=== PATIENT | female | born 1980 | race African-American/Black ===

== ENCOUNTER 2017-02-11 00:06 | Emergency (ER) | payer OTHER ==
[2017-02-11 00:39] VITALS: BMI 35.6
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
[2017-02-11] MEDS ORDERED: KETOROLAC TROMETHAMINE 60 MG/2 ML VIAL IM ONE (00:48)
[2017-02-11] MEDS ORDERED: KETOROLAC TROMETHAMINE 60 MG/2 ML VIAL ONE (00:52)
[2017-02-11 01:03] LABS: URINE APPEARANCE SLCLOUDY; URINE BILIRUBIN NEGATIVE (NEGATIVE); URINE BLOOD NEGATIVE (NEGATIVE); URINE COLOR LTYELLOW; URINE GLUCOSE (UA) NEGATIVE (NEGATIVE); URINE KETONE NEGATIVE (NEGATIVE); URINE NITRITE NEGATIVE (NEGATIVE); URINE PROTEIN NEGATIVE (NEGATIVE); URINE UROBILINOGEN NEGATIVE E.U./dl (0.2-1.0)
[2017-02-11 01:05] LABS: URINE LEUK ESTERASE 2+ (NEGATIVE)
[2017-02-11 01:14] LABS: URINE BACTERIA RARE /hpf (NONE SEEN); URINE MUCUS RARE; URINE RBC 1 /hpf (0-3); URINE WBC 6 /hpf (3-5)
[2017-02-11] MEDS ORDERED: SULFAMETHOXAZOLE/TRIMETHOPRIM 800MG/160MG D.S. TABLET PO ONE (01:45)
[2017-02-11 01:56] VITALS: BP 138/87; PULSE 68; TEMP 98.2
[2017-02-11] MEDS ORDERED: SULFAMETHOXAZOLE/TRIMETHOPRIM 800MG/160MG D.S. TABLET ONE (01:58)
== END 2017-02-11 02:39 | disposition home or self-care (01) ==
LOC: JER 00:06
PROC: 3E0233Z Introduction of Anti-inflammatory into Muscle, Percutaneous Approach (ICD-10-PCS; principal; 2017-02-11)
DX: N10 Acute pyelonephritis (principal); E05.90 Thyrotoxicosis, unspecified without thyrotoxic crisis or storm; F17.210 Nicotine dependence, cigarettes, uncomplicated
CPT/HCPCS: 81003; 81015; 84703; 87086; 96372; 99283-25

== ENCOUNTER 2017-08-15 16:33 | Emergency (ER) | payer OTHER ==
[2017-08-15 16:50] VITALS: BP 142/91; PULSE 76; TEMP 98; BMI 33.7
--- NOTE | 2017-08-15 16:52 | PDOC ---
Rapid Medical Evaluation Time Seen by Provider: 08/15/17 16:46 Medical Evaluation: Allergies Allergy/AdvReac Type Severity Reaction Status Date / Time No Known Allergies Allergy Verified 08/15/17 16:46 12 16:46 I have performed a brief in person evaluation of this patient. The patient presents with chief complaint of : lightheaded since 3pm. took home BP it was 149/100. LMP last week , history of hyperthyroid, PMD: . pt currently eating chips in triage having cell phone conversations. Pertinent PE findings: 142/90 I have ordered the following: urine preg The patient will proceed to the ER for further evaluation. 08/15/17 16:48
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
== END 2017-08-15 20:15 | disposition home or self-care (01) ==
LOC: JER 16:33
DX: R42 Dizziness and giddiness (principal); F17.210 Nicotine dependence, cigarettes, uncomplicated; E05.90 Thyrotoxicosis, unspecified without thyrotoxic crisis or storm
CPT/HCPCS: 84703; 99281-25

== ENCOUNTER 2019-10-09 06:45 | Inpatient (IN) | payer OTHER ==
[2019-10-09] MEDS ORDERED: CITRIC ACID/SODIUM CITRATE 30 ML UNIT-DOSE CUP PO ONE (07:29)
[2019-10-09] MEDS: ELECTROLYTE-148 SOLN 1,000 ML IV SCH (07:30)
--- NOTE | 2019-10-09 07:36 | HP ---
Past Medical History - Primary Care Physician PCP:: Randal Ibrahim - Admission Chief Complaint: 39 weeks, previous c/s, hyperthyroidism, request of repeat c/s. AMA, obesity, request for tubal ligation History of Present Illness: 38 yo f g 5 p2 0 1 2 with 2 previous c/s,39 weeks, requesting repeat c/s and BTL , risks associated with repeat c/s discussed , aware BTL is permanent, , not reversible , has small failure risks and risks ectopic, ulternatives to BTL discussed History Source: Patient - Past Medical History ...: 6 ...Para: 3 ...Term: 2 ...: 0 ...EDC by Sono: 10/17/19 Endocrine: Yes: Hyperthyroidism - Past Surgical History Past Surgical History: Yes: (ectopic ) Hx Myomectomy: No Hx Transabdominal Cerclage: No - Smoking History Smoking history: Current every day smoker Have you smoked in the past 12 months: Yes Aproximately how many cigarettes per day: 10 - Alcohol/Substance Use Hx Alcohol Use: No History of Substance Use: reports: None - Social History History of Recent Travel: No Home Medications - Allergies Allergies/Adverse Reactions: Allergies Allergy/AdvReac Type Severity Reaction Status Date / Time No Known Allergies Allergy Verified 10/09/19 07:38 - Home Medications Home Medications: Ambulatory Orders Methimazole 2 tab PO AM 06/27/19 Ferrous Sulfate [Iron] 325 mg PO DAILY 09/12/19 Vitamins (Sjr) - 1 tab PO DAILY 09/23/19 Review of Systems - Review of Systems Constitutional: reports: No Symptoms Eyes: reports: No Symptoms HENT: reports: No Symptoms Neck: reports: No Symptoms Cardiovascular: reports: No Symptoms Respiratory: reports: No Symptoms Gastrointestinal: reports: No Symptoms Genitourinary: reports: No Symptoms Breasts: reports: No Symptoms Reported Musculoskeletal: reports: No Symptoms Integumentary: reports: No Symptoms Neurological: reports: No Symptoms Endocrine: reports: Excessive Sweating Psychiatric: reports: No Symptoms Physical Exam - Maternity Constitutional: Yes: Obese Eyes: Yes: WNL HENT: Yes: WNL Neck: Yes: WNL Cardiovascular: Yes: WNL Breast(s): Yes: WNL - Abdominal Exam/OB Fundal Height: 38 Number of Fetuses: Single Presentation: Vertex Contractions: No Intensity: Unaware Monitor Mode: External Heart Rate Location: [facility] Category: I Accelerations: Non-Uniform Decelerations: None - Vaginal Exam/OB Vaginal Bleediing: No Speculum Exam: No Dilatation (cm): closed Effacement (%): 0 Amniotic Membrane Status: Intact Presentation: Vertex/Position Station: -4 - Physical Exam Musculoskeletal: Yes: WNL Extremities: Yes: WNL Edema: Yes Edema: LLE: Trace, RLE: Trace Deep Tendon Reflex Grade: Normal +2 ...Motor Strength: WNL Psychiatric: Yes: WNL Hemorrhage Risk Assessment - Risk Factors Medium Risk Factors: Yes: Prior , uterine surgery,or multiple laparotomies Risk Score: 1 Risk Level: Medium Risk Problem List - Problems (1) with 39 completed weeks gestation Code(s): Z3A.39 - 39 WEEKS GESTATION OF (2) Previous section Code(s): Z98.891 - HISTORY OF UTERINE SCAR FROM PREVIOUS SURGERY (3) Advanced maternal age (AMA) in Code(s): LFM6136 - (4) Hyperthyroidism affecting Code(s): O99.280 - ENDO, NUTRITIONAL AND METAB DISEASES COMP PREG, UNSP TRI; E05.90 - THYROTOXICOSIS, UNSP WITHOUT THYROTOXIC CRISIS OR STORM Qualifiers: Trimester: third trimester Qualified Code(s): O99.283 - Endocrine, nutritional and metabolic diseases complicating , third trimester; E05.90 - Thyrotoxicosis, unspecified without thyrotoxic crisis or storm (5) Obesity Code(s): E66.9 - OBESITY, UNSPECIFIED Qualifiers: Obesity type: due to excess calories (6) Smoker Code(s): F17.200 - NICOTINE DEPENDENCE, UNSPECIFIED, UNCOMPLICATED (7) Smoker Code(s): F17.200 - NICOTINE DEPENDENCE, UNSPECIFIED, UNCOMPLICATED (8) Sterilization Code(s): Z30.2 - ENCOUNTER FOR STERILIZATION Assessment/Plan admit risks associated with repeat c/s vs discussed in detail , all her questions answered requesting repeat c/s and BTL
[2019-10-09 08:06] VITALS: BMI 35.2
[2019-10-09] MEDS ORDERED: morphine SULFATE/PF 0.5 MG/ML (2cc Syringe - QUVA) ONE (08:58)
[2019-10-09] MEDS ORDERED: morphine SULFATE/PF 0.5 MG/ML (2cc Syringe - QUVA) EP ONE (09:25)
[2019-10-09] MEDS ORDERED: ceFAZolin SODIUM 1 GM VIAL ONE (09:43)
[2019-10-09] MEDS ORDERED: PHENYLEPHRINE HCL 10 MG/1 ML SINGLE DOSE VIAL ONE (09:43)
[2019-10-09] MEDS ORDERED: OXYTOCIN 10 UNITS/ML VIAL ONE (09:43)
[2019-10-09] MEDS ORDERED: KETOROLAC TROMETHAMINE 30 MG/1 ML VIAL ONE (09:47)
[2019-10-09] MEDS ORDERED: BENZOCAINE 20% 57 GM BOTTLE TP PRN (10:25)
[2019-10-09] MEDS ORDERED: METHYLERGONOVINE MALEATE 0.2 MG/1 ML AMP IM PRN (10:25)
[2019-10-09] MEDS ORDERED: BENZOCAINE 28 GM HEMORRHOIDAL OINTMENT PR PRN (10:25)
[2019-10-09] MEDS ORDERED: WITCH HAZEL 50% (TUCKS) 40 PAD/JAR PAD TP PRN (10:25)
[2019-10-09] MEDS ORDERED: diphenhydrAMINE HCL 25 MG CAPSULE (FP) PO PRN (10:25)
[2019-10-09] MEDS ORDERED: OXYTOCIN 20 UNITS in 0.9% NS 20 UNIT/1,000 ML INFUS.BAG IV SCH (10:30)
--- NOTE | 2019-10-09 10:31 | OP ---
Operative Note - Note: Operative Date: 10/09/19 Pre-Operative Diagnosis: previous c/s. sterlization Operation: repeat LST c/s, RT tubal ligation . LT not seen, previuos ectopic Findings: live baby girl ROT, clear fluid , both ovaries normal, missing LT tube Surgeon: Randal Ibrahim Pleating Supervisor: Billy Renee Anesthesia: Spinal Specimens Removed: placenta, RT tube Estimated Blood Loss (mls): 500 Drains & Tubes with Location: sousa Blood Volume Replaced (mls): 0 Operative Report Dictated: Yes
[2019-10-09] MEDS ORDERED: ONDANSETRON 4 MG/2 ML VIAL IVPUSH PRN (10:33)
[2019-10-09] MEDS ORDERED: ACETAMINOPHEN 1000 MG/100 ML VIAL (NON FORMULARY) IVPB ONE (10:36)
[2019-10-09] MEDS ORDERED: IBUPROFEN 800 MG/8 ML IJ IVPB ONE (11:20)
[2019-10-09] MEDS: IBUPROFEN 800 MG/8 ML IJ IVPB PRN ×2 (11:36→21:01)
[2019-10-09] MEDS: LACTATED RINGERS SOLUTION 1,000 ML IV SCH (11:37)
[2019-10-09] MEDS: DEXTROSE 5%-LACTATED RINGERS 1,000 ML IV SCH (11:37)
[2019-10-09] MEDS ORDERED: OXYTOCIN 20 UNITS in 0.9% NS 20 UNIT/1,000 ML INFUS.BAG IV ONE (12:00)
[2019-10-09] MEDS: CEFAZOLIN 1 GM/D5W 1 GM/50 ML BAG IVPB SCH (17:54)
[2019-10-09] MEDS ORDERED: CEFAZOLIN 1 GM in DEXTROSE 5%-WATER - 50 ML IVPB SCH (18:00)
[2019-10-09] MEDS: ALBUTEROL SO4 0.083% IH SOL 2.5 MG/3 ML VIAL.NEB. NEB PRN (20:35)
[2019-10-09] MEDS: METHIMAZOLE 10 MG TABLET (FP) PO SCH (21:06)
[2019-10-10] MEDS: CEFAZOLIN 1 GM/D5W 1 GM/50 ML BAG IVPB SCH (02:22)
[2019-10-10] MEDS: ALBUTEROL SO4 0.083% IH SOL 2.5 MG/3 ML VIAL.NEB. NEB PRN ×3 (03:05→22:00)
--- NOTE | 2019-10-10 05:21 | PN ---
Post Progress Note - Subjective Subjective: c/o pain scale 7/10 c/o backache from lying in the bed c/o cough , h/o smoking , taking nebulizer treatment , pt not satisfied yet Post Day: 1 Type of Delivery: Repeat C/S (With Rt TL) Vital Signs: Vital Signs Temperature 97.9 F 10/10/19 01:00 Pulse Rate 66 10/10/19 01:00 Respiratory Rate 10/10/19 02:00 Blood Pressure 113/67 10/10/19 01:00 O2 Sat by Pulse Oximetry (%) 99 10/09/19 21:00 Breast Exam: Yes: Soft, Other (bottle feeding ). No: Engorged Uterus: Yes: Fundus Firm, Fundus below umbilicus. No: Non-tender Incision: Yes: Dressing dry and intact. No: Redness, Oozing Abdomen/GI: Yes: Abdomen soft, Abdominal Distention (obese BS active ), Tolerating PO (clear fluids ). No: Passing flatus Lochia: Yes: Rubra Lochia, amount: Moderate Extremities: Yes: Calves non-tender, Edema Perineum: Yes: Intact Activity: Other (not oob yet, scd in situ ) Other Findings, Remarks: RS cta , , shallow breathing, no wheezing Sousa draining . i/o documented 2800/850 + sousa bag urine Problem List - Problems (1) examination following delivery Code(s): Z39.2 - ENCOUNTER FOR ROUTINE FOLLOW-UP Assessment/Plan s/p repeat c/s RT TL smokers cough Plan ct po care ct nebulizer treatment incentive spirometry encourage deep breathing, movements in bed , ambulation after sousa is d/ delfin po cbc today
[2019-10-10] MEDS: SIMETHICONE 80 MG TAB.CHEW (FP) PO PRN ×4 (05:39→17:50)
[2019-10-10] MEDS: IBUPROFEN 600 MG TABLET (FP) PO PRN (05:39)
[2019-10-10] MEDS: ACETAMINOPHEN 325 MG TABLET (FP) PO PRN ×5 (05:40→22:46)
[2019-10-10] MEDS: oxyCODONE HCL 5 MG TABLET PO PRN ×6 (06:22→21:32)
[2019-10-10] MEDS ORDERED: METHIMAZOLE 10 MG TABLET (FP) PO SCH (07:00)
[2019-10-10 09:03] LABS: BASO % 0.6 % (0-2.0); EOS % 0.9 % (0-4.5); HEMATOCRIT 36.9 % (32.4-45.2); HEMOGLOBIN 12.2 GM/dL (10.7-15.3); LYMPH % 18.1 % (8-40); MCH 27.4 pg (25.7-33.7); MCHC 32.9 g/dl (32.0-36.0); MEAN CELL VOLUME 83.3 fl (80-96); MEAN PLT VOLUME 8.1 fl (7.5-11.1); MONO % 5.7 % (3.8-10.2); NEUT % 74.7 % (42.8-82.8); PLATELET COUNT 384 K/MM3 (134-434); RBC 4.43 M/mm3 (3.60-5.2); RDW 15.7 % (11.6-15.6); WHITE BLOOD COUNT 14.3 K/mm3 (4.0-10.0)
[2019-10-10] MEDS: ENOXAPARIN NA (PORCINE) 40 MG/0.4 ML DISP.SYRIN SQ SCH (09:34)
[2019-10-10] MEDS: METHIMAZOLE 10 MG TABLET (FP) PO SCH ×2 (09:44→21:57)
--- NOTE | 2019-10-10 10:22 | PN ---
Progress Note (short form) - Note Progress Note: Anesthesia postop note POD#1 S/P under spinal with duramorph. Pat seen and examined. VSS. Walking in the hallway. Pain well controlled. Scale3-4/10. No apparent postanesthesia complications.
[2019-10-10] MEDS ORDERED: BISACODYL 10 MG SUPP.RECT RC PRN (10:25)
[2019-10-10] MEDS: LACTATED RINGERS SOLUTION 1,000 ML IV SCH (11:20)
[2019-10-10] MEDS: ELECTROLYTE-148 SOLN 1,000 ML IV SCH (11:21)
[2019-10-10] MEDS: DEXTROSE 5%-LACTATED RINGERS 1,000 ML IV SCH (11:21)
[2019-10-10] MEDS: guaiFENesin/D-METHORPHAN HB 10 ML UNIT-DOSE CUPS PO PRN (17:52)
[2019-10-10] MEDS: guaiFENesin 600 MG TABLET.ER (FP) PO SCH (21:03)
[2019-10-11] MEDS: SIMETHICONE 80 MG TAB.CHEW (FP) PO PRN ×4 (01:42→21:59)
[2019-10-11] MEDS: oxyCODONE HCL 5 MG TABLET PO PRN ×2 (01:42→07:39)
--- NOTE | 2019-10-11 05:46 | PN ---
Post Progress Note - Subjective Subjective: Pain controlled. Still with productive cough. No fevers/chills. Ambulating w/o issues Post Day: 2 Type of Delivery: Repeat C/S (With Rt TL) Vital Signs: Vital Signs Temperature 98.1 F 10/10/19 21:13 Pulse Rate 88 10/10/19 21:13 Respiratory Rate 20 10/10/19 21:13 Blood Pressure 132/86 10/10/19 21:13 O2 Sat by Pulse Oximetry (%) 99 10/09/19 21:00 Uterus: Yes: Fundus below umbilicus Incision: Yes: Dressing dry and intact Abdomen/GI: Yes: Abdomen soft, Passing flatus, Tolerating PO Lochia: Yes: Rubra Lochia, amount: Small Extremities: Yes: Calves non-tender Perineum: Yes: Intact Activity: Ambulating - Labs Labs: CBC WBC 14.3 K/mm3 (4.0-10.0) H 10/10/19 08:30 RBC 4.43 M/mm3 (3.60-5.2) 10/10/19 08:30 Hgb 12.2 GM/dL (10.7-15.3) 10/10/19 08:30 Hct 36.9 % (32.4-45.2) 10/10/19 08:30 MCV 83.3 fl (80-96) 10/10/19 08:30 MCH 27.4 pg (25.7-33.7) 10/10/19 08:30 MCHC 32.9 g/dl (32.0-36.0) 10/10/19 08:30 RDW 15.7 % (11.6-15.6) H 10/10/19 08:30 Plt Count 384 K/MM3 (134-434) 10/10/19 08:30 MPV 8.1 fl (7.5-11.1) 10/10/19 08:30 Absolute Neuts (auto) 10.7 K/mm3 (1.5-8.0) H 10/10/19 08:30 Neutrophils % 74.7 % (42.8-82.8) 10/10/19 08:30 Lymphocytes % 18.1 % (8-40) 10/10/19 08:30 Monocytes % 5.7 % (3.8-10.2) 10/10/19 08:30 Eosinophils % 0.9 % (0-4.5) 10/10/19 08:30 Basophils % 0.6 % (0-2.0) 10/10/19 08:30 Nucleated RBC % 0 % (0-0) 10/10/19 08:30 Assessment/Plan 38yo s/p RLTCS, BTL, POD#2 Routine PP care PO pain control OOB, ambulate Labs reviewed, normal Cont expectorant for productive cough Anticipate d/c to home by POD#4 Elli Bolden MD
[2019-10-11] MEDS: ACETAMINOPHEN 325 MG TABLET (FP) PO PRN ×3 (07:41→21:59)
[2019-10-11] MEDS: ENOXAPARIN NA (PORCINE) 40 MG/0.4 ML DISP.SYRIN SQ SCH (09:59)
[2019-10-11] MEDS: METHIMAZOLE 10 MG TABLET (FP) PO SCH ×2 (10:00→21:59)
[2019-10-11] MEDS: IBUPROFEN 600 MG TABLET (FP) PO PRN ×3 (11:20→22:00)
[2019-10-11] MEDS: guaiFENesin 600 MG TABLET.ER (FP) PO SCH (12:43)
--- NOTE | 2019-10-11 16:27 | PATH ---
Surgical Pathology Report Patient Name: LJ ELIZONDO [facility]. Rec. #: [id number] /Age/Gender: 1980 (Age: 38) / F Account: [id number] Location: [facility] OBS/OFFICIAL COURT INTERPRETER Taken: 10/09/2019 Received: 10/10/2019 Reported: 10/11/2019 Physicians: Randal Ibrahim M.D. Specimen(s) Received A: PLACENTA B: FALLOPIAN TUBE, PORTION, RIGHT Clinical History , 39 weeks Final Diagnosis A. PLACENTA, SECTION: 588 G THIRD TRIMESTER PLACENTA WITH TRIVASCULAR UMBILICAL CORD AND UNREMARKABLE PLACENTAL MEMBRANES. B. FALLOPIAN TUBE, PORTION, RIGHT, PARTIAL EXCISION: FULL LUMINAL PORTION OF UNREMARKABLE FALLOPIAN TUBE. Electronically Signed Josefina Arango M.D. Gross Description A. The specimen is received fresh labeled placenta and is a 588 gram, 21.0 x 17.0 x 2.0 cm. placenta with attached membranes and umbilical cord. The attached membranes are bar, translucent with focal opacities and insert marginally. The umbilical cord measures 10 cm. in length and averages 1 cm. in diameter. The cord inserts eccentrically, 4 cm. to the nearest margin. No true knots or strictures are identified. Cut surface of the umbilical cord reveals 3 vessels. The surface is lozoya blue with moderate fibrin deposition and appropriate caliber vessels. The maternal surface is red-brown with focal defects. Sectioning reveals red-brown, spongy parenchyma. No lesions are identified. Computer Typesetter Keyliner sections are submitted in three cassettes as follows: 1- membrane rolls and umbilical cord; 2-3- full thickness sections of placenta. B. Received in formalin labeled "portion of right fallopian tube," is a 1.5 cm in length portion of fallopian tube. No fimbria are present. The outer surface is bar-pink and smooth. Sectioning reveals an unremarkable lumen. Computer Typesetter Keyliner sections are submitted in one cassette. /10/10/2019 saudi/10/10/2019
[2019-10-11] MEDS ORDERED: SENNOSIDES/DOCUSATE COMBO (SENNA PLUS) TABLET (UD) PO PRN (22:00)
[2019-10-11] MEDS ORDERED: ALBUTEROL SO4 8 GM HFA INHALER IH PRN (23:07)
[2019-10-12] MEDS: ACETAMINOPHEN 325 MG TABLET (FP) PO PRN (03:02)
[2019-10-12] MEDS: IBUPROFEN 600 MG TABLET (FP) PO PRN (03:03)
--- NOTE | 2019-10-12 07:56 | DS ---
Physical Exam-LEATHER GRADER Vital Signs: Vital Signs Temperature 98.6 F 10/11/19 22:00 Pulse Rate 72 10/11/19 22:00 Respiratory Rate 18 10/11/19 22:00 Blood Pressure 128/71 10/11/19 22:00 O2 Sat by Pulse Oximetry (%) 99 10/09/19 21:00 Constitutional: Yes: Well Nourished, No Distress, Calm, Obese Eyes: Yes: WNL, Conjunctiva Clear, EOM Intact HENT: Yes: WNL, Atraumatic, Normocephalic Neck: Yes: WNL, Supple, Trachea Midline Cardiovascular: Yes: WNL, Regular Rate and Rhythm Respiratory: Yes: WNL, Regular, CTA Bilaterally Gastrointestinal: Yes: WNL ...Rectal Exam: Yes: WNL Renal/: Yes: WNL ....Post : Yes: Uterus firm, Uterus non-tender, Slight lochia rubra Breast(s): Yes: WNL Musculoskeletal: Yes: WNL Extremities: Yes: WNL Edema: LLE: Trace, RLE: Trace Integumentary: Yes: WNL Wound/Incision: Yes: Clean/Dry, Well Approximated, Randolph Intact Neurological: Yes: WNL, Alert, Oriented ...Motor Strength: WNL Psychiatric: Yes: WNL, Alert, Oriented Labs: CBC, BMP 10/10/19 08:30 Delivery - Delivery Section: Repeat (no complication), Low Flap Transverse Type of Anesthesia: Spinal EBL (cc): 500 Delivery, Single - Stages of Labor Date of Delivery: 10/09/19 Time of Delivery: 09:41 Time Placenta Delivered: 09:44 Placenta: Yes: Expressed - Condition of Commutator V Ring Assembler/Bellstand Attendant Present: Yes Name: Sagrario Tamayo Infant Gender: Female Weight: 7 lb 3 oz Position: Right, OT Total Hours ROM (Hrs/Mins): 0Hrs/4Mins - 1 Minute Total Score: 9 5 Minutes Total Score: 9 - Feeding Plan Initial Plan: Exclusive throughout hospitalization Discharge Summary Problems reviewed: Yes Reason For Visit: ADMIT C/S Current Active Problems Advanced maternal age (AMA) in (Acute) Hyperthyroidism affecting (Acute) Obesity (Acute) examination following delivery (Acute) with 39 completed weeks gestation (Acute) Previous section (Acute) Smoker (Acute) Smoker (Acute) Sterilization (Acute) Procedures: Principal: repeat LSTc/s Other Procedures: tubal ligation Hospital Course: bronchitis Health Concerns: hyperthyroidism, obesity, smoker Plan of Treatment: wt loss, exercise , follow up with endo for TFT, stop smoking Condition: Stable - Instructions Diet, Activity, Other Instructions: Regular Diet Follow up in one week for an incision check if fever, pain, heavy vaginal bleeding call md follow up with endocrine for hyperthyroidism follow up with PCP for cough Referrals: Randal Ibrahim MD [Staff Physician] - Disposition: HOME - Home Medications Comprehensive Discharge Medication List: Ambulatory Orders Methimazole 2 tab PO AM 06/27/19 Ferrous Sulfate [Iron] 325 mg PO DAILY 09/12/19 Vitamins (Sjr) - 1 tab PO DAILY 09/23/19 Ibuprofen [Motrin -] 600 mg PO QID #28 tablet 10/11/19
[2019-10-12 09:01] LABS: EOS % 1.8 % (0-4.5); HEMATOCRIT 37.2 % (32.4-45.2); HEMOGLOBIN 12.5 GM/dL (10.7-15.3); LYMPH % 20.9 % (8-40); MCH 27.6 pg (25.7-33.7); MCHC 33.5 g/dl (32.0-36.0); MEAN CELL VOLUME 82.4 fl (80-96); MEAN PLT VOLUME 7.5 fl (7.5-11.1); MONO % 4.8 % (3.8-10.2); NEUT % 71.5 % (42.8-82.8); PLATELET COUNT 421 K/MM3 (134-434); RBC 4.52 M/mm3 (3.60-5.2); RDW 15.8 % (11.6-15.6); WHITE BLOOD COUNT 11.2 K/mm3 (4.0-10.0)
[2019-10-12 09:44] VITALS: BP 126/75; PULSE 69; TEMP 97.6
[2019-10-12] MEDS: METHIMAZOLE 10 MG TABLET (FP) PO SCH (10:16)
[2019-10-12] MEDS: guaiFENesin/D-METHORPHAN HB 10 ML UNIT-DOSE CUPS PO PRN (10:17)
[2019-10-12] MEDS: ENOXAPARIN NA (PORCINE) 40 MG/0.4 ML DISP.SYRIN SQ SCH (10:17)
--- NOTE | 2019-11-07 17:49 | OP ---
DATE OF OPERATION: 10/12/2019 PREOPERATIVE DIAGNOSIS: , 39 weeks; previous section; hypertension; request of repeat section. POSTOPERATIVE DIAGNOSIS: , 39 weeks; previous section; hypertension; request of repeat section. PROCEDURE PERFORMED: Repeat low-segment transverse section. SURGEON: Cornelio Ibrahim MD RISK AND INSURANCE CONSULTANT: CLEMENT Yi ANESTHESIA: Spinal. ESTIMATED BLOOD LOSS: 500 mL. DESCRIPTION OF PROCEDURE: The patient was taken to the operating room and had adequate spinal anesthesia. Abdomen and perineum were prepped and draped. A Pfannenstiel abdominal skin incision was made over the previous incision. The abdominal wall was cut layer by layer, until the peritoneum was exposed and incised. Upon entering the abdominal cavity, the lower uterine segment was identified and the uterovesical fold of peritoneum established. The bladder was pushed down. A low transverse uterine incision was made. The incision was extended laterally. The amniotic sac was entered. Clear fluid. Head delivered. Nasopharynx was suctioned and live baby was delivered without any difficulty. The placenta was delivered manually. The uterine cavity was cleaned of all remaining tissue. The uterine incision was closed in 2 layers, the 1st layer with 0 Biosyn continuous suture and the 2nd layer with 0 Biosyn imbricating the 1st layer. The bladder flap was closed with 0 Biosyn continuous suture. Both tubes and ovaries were checked and were normal. No active bleeding was seen. All the lap, sponge and instrument counts were correct. Then the peritoneum was closed with 0 Biosyn continuous suture. The muscles were brought together with interrupted suture of 0 Biosyn. The fascia was closed with 0 Biosyn continuous suture, the subcutaneous fat with interrupted suture of 0 Biosyn, and the skin was closed with yolanda. The patient tolerated the procedure well, and left the OR in good condition. CORNELIO IBRAHIM M.D. [id number]
== END 2019-10-12 12:30 | disposition home or self-care (01) | DRG 785 ==
LOC: JLDR 06:45 → J3W 11:51
PROVIDERS: ADMIT Obstetrics & Gynecology; ATTEND Obstetrics & Gynecology
PROC: 10D00Z1 Extraction of Products of Conception, Low, Open Approach (ICD-10-PCS; principal; 2019-10-09)
PROC: 0UL70ZZ Occlusion of Bilateral Fallopian Tubes, Open Approach (ICD-10-PCS; 2019-10-09)
DX: O99.284 Endocrine, nutritional and metabolic diseases complicating childbirth (principal); E05.80 Other thyrotoxicosis without thyrotoxic crisis or storm; O34.219 Maternal care for unspecified type scar from previous cesarean delivery; Z3A.39 39 weeks gestation of pregnancy; Z37.0 Single live birth; Z30.2 Encounter for sterilization
CPT/HCPCS: 36415; 36600; 71046-TC-FY; 82803; 85025; 94010; 94640

== ENCOUNTER 2019-10-18 13:41 | Observation (INO) | payer OTHER ==
--- NOTE | 2019-10-18 14:08 | PDOC ---
Rapid Medical Evaluation Chief Complaint: Blood Pressure Problem Time Seen by Provider: 10/18/19 14:00 Medical Evaluation: Allergies Allergy/AdvReac Type Severity Reaction Status Date / Time No Known Allergies Allergy Verified 10/09/19 07:38 10/18/19 14:01 I have performed a brief in-person evaluation of this patient. The patient presents with a chief complaint of: dizziness/ fatigue/ HTN Pertinent physical exam findings: pale, A&ox3 I have ordered the following: UA The patient will proceed to the ED for further evaluation. 10/18/19 14:08 Discharge Disposition - Diagnosis Blood pressure alteration - Referrals - Patient Instructions - Post Discharge Activity
[2019-10-18 17:04] LABS: BASO % 0.3 % (0-2.0); EOS % 1.7 % (0-4.5); HEMATOCRIT 37.8 % (32.4-45.2); HEMOGLOBIN 12.5 GM/dL (10.7-15.3); LYMPH % 35.1 % (8-40); MCH 27.6 pg (25.7-33.7); MCHC 33.2 g/dl (32.0-36.0); MEAN CELL VOLUME 83.1 fl (80-96); MEAN PLT VOLUME 7.5 fl (7.5-11.1); MONO % 6.8 % (3.8-10.2); NEUT % 56.1 % (42.8-82.8); PLATELET COUNT 482 K/MM3 (134-434); RBC 4.55 M/mm3 (3.60-5.2); RDW 15.6 % (11.6-15.6); WHITE BLOOD COUNT 10.8 K/mm3 (4.0-10.0)
[2019-10-18] MEDS ORDERED: LABETALOL HCL 5 MG/1 ML (100MG/20 ML VIAL) IVPUSH ONE ×2 (17:04→23:59)
[2019-10-18] MEDS ORDERED: ACETAMINOPHEN 1000 MG/100 ML VIAL (NON FORMULARY) IVPB ONE (17:06)
[2019-10-18] MEDS ORDERED: LABETALOL HCL 5 MG/1 ML (200MG/40ML VIAL) IVPB ONE (17:10)
[2019-10-18] MEDS ORDERED: ACETAMINOPHEN INJECTION 100 ML IVPB ONE (17:10)
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
[2019-10-18 17:39] LABS: PH,URINE 5.5 (5.0-8.0); URINE APPEARANCE CLOUDY; URINE BILIRUBIN NEGATIVE (NEGATIVE); URINE COLOR YELLOW; URINE GLUCOSE (UA) NEGATIVE (NEGATIVE); URINE KETONE NEGATIVE (NEGATIVE); URINE LEUK ESTERASE 3+ (NEGATIVE); URINE NITRITE NEGATIVE (NEGATIVE); URINE PROTEIN NEGATIVE (NEGATIVE); URINE UROBILINOGEN 0.2 mg/dL (0.2-1.0)
[2019-10-18 17:47] LABS: BILIRUBIN,TOTAL 0.2 mg/dL (0.2-1); BLOOD UREA NITROGEN 13.4 mg/dL (7-18); CREATININE 0.9 mg/dL (0.55-1.3); MAGNESIUM 1.7 mg/dL (1.8-2.4); POTASSIUM 4.1 mmol/L (3.5-5.1)
[2019-10-18 18:07] LABS: EPI CELLS 3.6 /HPF (0-5/HPF); HYALINE CASTS 1.48 /lpf (0-8)
[2019-10-18 18:08] LABS: URINE BACTERIA 121.8 /hpf (NEGATIVE)
--- NOTE | 2019-10-18 18:09 | PDOC ---
Documentation entered by Jose Rocha SCRIBE, acting as scribe for Noreen Colorado DO. Noreen Colorado DO: This documentation has been prepared by the Aj morejon Xhesika, SCRIBE, under my direction and personally reviewed by me in its entirety. I confirm that the documentation accurately reflects all work, treatment, procedures, and medical decision making performed by me. 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 Pt is 10 days and is endorsing abdominal pain at her site everytime she goes to carry/lift up the baby. Pt states her pain is so severe it makes her cry. Pt states she has been taking motrin with no relief of symptoms. The patient denies chest pain, shortness of breath, and dizziness. Denies fever , chills, cough, nausea, vomiting, diarrhea and constipation. Denies dysuria, frequency, urgency and hematuria. Allergies: NKDA - Physicial Exam PE: 10/18/19 18:14 GENERAL: Awake, alert, and fully oriented, in no acute distress HEAD: No signs of trauma NECK: Normal ROM, supple, no lymphadenopathy, JVD, or masses LUNGS: Breath sounds equal, clear to auscultation bilaterally. No wheezes, and no crackles HEART: Regular rate and rhythm, normal S1 and S2, no murmurs, rubs or gallops ABDOMEN: +abdominal pain around site. Soft, normoactive bowel sounds. No guarding, no rebound. No masses EXTREMITIES: +BLE edema. Normal range of motion. No clubbing or cyanosis. No cords, erythema, or tenderness NEUROLOGICAL: Cranial nerves II through XII grossly intact. Normal speech, normal gait SKIN: Warm, Dry, normal turgor, no rashes or lesions noted. - Medical Decision Making 10/18/19 18:03 a/p: 38yo female 1 week post c section delivery with elevated bp and [place], LE swelling -pt states [place] from abd pain, and pain post c section -states legs swelled only after her surgery -no calf pain -no cp/sob -abd pain only around her c section scar -bp elevated in the er -neuro intact -will send labs, ua, ekg, cxr -will send tsh - recently had a change about a month ago in her methimazole dose -will discuss with RUBBER MILL OPERATOR 10/18/19 18:37 pt labs reviewed no protein in the urine no elevated lft resident discussed the case with Dr. Perez who reocmmends labetalol 200mg TID for bp wants bp 140/90 prior to dc 10/18/19 19:28 cxr clear 10/18/19 22:21 bp now 168/98 pt states she wants to go home and wants to be with her daughter states she will take the labetalol at home states she will call dr. perez and schedule a follow up states she will buy a bp cuff at home states she will come back to the ER if bp still elevated or any further symptoms pt states she wants to sign out ama Note: The patient insists on leaving the emergency dept and is signing out against medical advice. The patient understands the risks and complications that may result from the refusal of medical care and admission which includes and permanent disability. The patient has the mental capacity of understanding the risks of refusing care and is capable of making an informed decision. The patient was instructed to return to the emergency department should she change her mind regarding medical care or should her condition worsen. The patient signed the Against Medical Advice form. Discharge - Discharge Information Problems reviewed: Yes Clinical Impression/Diagnosis: hypertension Condition: Unchanged/Unknown Disposition: AGAINST MEDICAL ADVICE - Admission No - Additional Discharge Information Prescriptions: Labetalol HCl [Normodyne -] 200 mg PO TID #30 tablet - Follow up/Referral Referrals: Malcolm Deng MD [Primary Care Provider] - Randal Perez MD [Staff Physician] - - Patient Discharge Instructions Patient Printed Discharge Instructions: DI for High Blood Pressure, How to Monitor Your Blood Pressure at Home Additional Instructions: Please take all medications as prescribed. Please buy a blood pressure cuff at home to monitor your pressure. Please call your PMD and your RUBBER MILL OPERATOR in the AM to schedule a close follow up appointment in 2 days. Please return to the ER with any further concerns or complaints. - Post Discharge Activity Heart Score/ECG Review - ECG Intrepretation Comment:: 10/18/19 18:39 sinus serena at 50, nl axis, nl interval, no acute st/t wave findings
[2019-10-18] MEDS ORDERED: METOCLOPRAMIDE HCL INJECTION 10 MG/2 ML VIAL IVPUSH ONE (18:32)
[2019-10-18] MEDS ORDERED: MAGNESIUM SULF 50% (8.12 MEQ/2 ML-1 GM VIAL) IVPB ONE (18:32)
[2019-10-18] MEDS ORDERED: MAGNESIUM 1GM/D5W - 2 GM/200 ML IVPB IVPB ONE (18:49)
[2019-10-18] MEDS ORDERED: METOCLOPRAMIDE HCL INJECTION 10 MG/2 ML VIAL ONE (18:49)
[2019-10-18] MEDS ORDERED: hydrALAZINE HCL 20 MG/ML VIAL IVPUSH ONE (20:05)
[2019-10-18] MEDS ORDERED: hydrALAZINE HCL 20 MG/ML VIAL ONE (20:11)
[2019-10-18] MEDS ORDERED: LABETALOL HCL 200 MG TABLET (FP) PO ONE (20:40)
[2019-10-18] MEDS ORDERED: LABETALOL HCL 100 MG TABLET (FP) ONE (21:18)
[2019-10-18] MEDS ORDERED: KETOROLAC TROMETHAMINE 30 MG/1 ML VIAL IVPUSH ONE (21:51)
[2019-10-18] MEDS ORDERED: KETOROLAC TROMETHAMINE 15 MG/ML VIAL ONE (21:54)
--- NOTE | 2019-10-19 00:57 | PN ---
Teaching Attending Note Name of Resident: Murali Del Castillo ATTENDING PHYSICIAN STATEMENT I saw and evaluated the patient. I reviewed the resident's note and discussed the case with the resident. I agree with the resident's findings and plan as documented. SUBJECTIVE: 38-year-old woman, G6, P4 with a history of hyperthyroidism on methimazole 20 mg , follows closely with specimen accessioner presents to emergency room , day 10, status post complaining of surgical site pain. Case was discussed with Dr. Live from the emergency room and he recommended to treat hypertension with labetalol however patient developed significant bradycardia after receiving labetalol 10 mg IV push, labetalol 200 mg p.o., propanolol 20 mg p.o. OBJECTIVE: Last Vital Signs Temp Pulse Resp BP Pulse Ox 98.0 F 53 L 22 H 157/80 99 10/18/19 14:01 10/19/19 00:00 10/19/19 00:00 10/19/19 00:00 10/19/19 00:00 GENERAL: Well developed, well nourished. Awake and alert. No acute distress. HEENT: Normocephalic, atraumatic. PERRLA, EOMI. No conjunctival pallor. Sclera are non- icteric. Moist mucous membranes. Oropharynx is clear. NECK: Supple. Full ROM. No JVD. Carotid pulses 2+ and symmetric, without bruits. No thyromegaly. No lymphadenopathy. CARDIOVASCULAR: Regular rate and rhythm. No murmurs, rubs, or gallops. Distal pulses are 2+ and symmetric. PULMONARY: No evidence of respiratory distress. Lungs clear to auscultation bilaterally. No wheezing, rales or rhonchi. ABDOMINAL: Soft. Non-tender. Non-distended. No rebound or guarding. No organomegaly. Normoactive bowel sounds. MUSCULOSKELETAL Normal range of motion at all joints. No bony deformities or tenderness. No CVA tenderness. EXTREMITIES: Bilateral pitting edema up to mid shins 2+ SKIN: Warm and dry. Normal capillary refill. No rashes. No jaundice. PSYCHIATRIC: Cooperative. Good eye contact. Appropriate mood and affect. Abnormal Lab Results 10/18/19 10/18/19 10/18/19 16:17 16:30 16:30 WBC 10.8 H Plt Count 482 H Anion Gap 5 L Random Glucose 68 L Magnesium 1.7 L AST 13 L Alkaline Phosphatase 118 H Creatine Kinase 265 H Albumin 3.0 L TSH 0.02 L Ur Specific [place] 1.006 L Urine Blood 3+ H Ur Leukocyte Esterase 3+ H Imaging studies reviewed Chest x-ray showed prominent mediastinum with prominent hilar markings but no sign of infiltrate or failure ASSESSMENT AND PLAN: 38-year-old woman with uncontrolled hypertension. Bilateral lower extremity pitting edema suggest possible cardiomyopathy, UA was performed and negative for proteinuria so doubt peripartum preeclampsia. Would obtain BNP and transthoracic echo to further rule out cardiomyopathy significant bradycardia after multiple doses of beta-blockers. Admit to [facility] Send BNP Transthoracic echo I's and O's and daily weights Salt restriction Amlodipine 5 mg p.o., lisinopril 10 mg p.o. Lasix 40 mg IV push Avoid beta-blockers due to bradycardia Monitor vital signs closely GUM WORKER follow-up #Uncontrolled hyperthyroidismTSH noted to be 0.02 Continue with methimazole 20 mg p.o. daily #Hypomagnesemia Supplement magnesium #Hypoalbuminemia Heparin subcutaneously for DVT prophylaxis
--- NOTE | 2019-10-19 01:33 | HP ---
CHIEF COMPLAINT: Elevated Blood Pressure PCP: Franky May HISTORY OF PRESENT ILLNESS: Pt is a 38 y/o F with a significant past medical history of hyperthyroidism ( on methimazole 40 mg daily, 20 am, 20 pm) who presented to [facility] from her OB/ GILL BOX FIXER's clinic (Dr Ibrahim) due to "high blood pressure." Pt does not know the exact blood pressure reading. Patient endorses she recently underwent a section 10 days ago which was uneventful. Patient currently endorses a slight headache at this time. Denies any chest pain, shortness of breath, or blurry vision. Pt denies any history of hypertension. Denies any illicit drug use as well. Only medication she takes is above mentioned methimazole. Emergency department staff spoke with WAITER/WAITRESS COUNTER who advised for patient to be placed on Labetalol 200 TID; however, due to patient's bradycardia, this was discontinued. ER course was notable for: (1) BP 182/90 (2) Administered Inderel, Labetalol IV and PO, and Hydralazine in ED Recent Travel: Denies PAST MEDICAL HISTORY: Hypothyroidism PAST SURGICAL HISTORY: C Section Social History: Smoking: Smoked 1/2 PPD > 20 years. Quit. Alcohol: Denies Drugs: denies Allergies No Known Allergies Allergy (Verified 10/09/19 07:38) HOME MEDICATIONS: Home Medications Medication Instructions Recorded Methimazole 2 tab PO AM 06/27/19 Ferrous Sulfate [Iron] 325 mg PO DAILY 09/12/19 Vitamins (Sjr) - 1 tab PO DAILY 09/23/19 Ibuprofen [Motrin -] 600 mg PO QID #28 tablet 10/11/19 Labetalol HCl [Normodyne -] 200 mg PO TID #30 tablet 10/18/19 REVIEW OF SYSTEMS CONSTITUTIONAL: Absent: fever, chills, diaphoresis, generalized weakness, malaise, loss of appetite, weight change HEENT: Absent: rhinorrhea, nasal congestion, throat pain, throat swelling, difficulty swallowing, mouth swelling, ear pain, eye pain, visual changes CARDIOVASCULAR: Absent: chest pain, syncope, palpitations, irregular heart rate, lightheadedness , peripheral edema RESPIRATORY: Absent: cough, shortness of breath, dyspnea with exertion, orthopnea, wheezing, stridor, hemoptysis GASTROINTESTINAL: Absent: abdominal pain, abdominal distension, nausea, vomiting, diarrhea, constipation, melena, hematochezia GENITOURINARY: Absent: dysuria, frequency, urgency, hesitancy, hematuria, flank pain, genital pain MUSCULOSKELETAL: Absent: myalgia, arthralgia, joint swelling, back pain, neck pain SKIN: Absent: rash, itching, pallor HEMATOLOGIC/IMMUNOLOGIC: Absent: easy bleeding, easy bruising, lymphadenopathy, frequent infections ENDOCRINE: Absent: unexplained weight gain, unexplained weight loss, heat intolerance, cold intolerance NEUROLOGIC: PRESENT Headache PSYCHIATRIC: Absent: anxiety, depression, suicidal or homicidal ideation, hallucinations. PHYSICAL EXAMINATION Vital Signs - 24 hr 10/18/19 10/18/19 10/18/19 14:01 16:10 17:04 Temperature 98.0 F Pulse Rate 70 Pulse Rate [ 74 Right] Respiratory 18 16 Rate Blood Pressure 157/89 Blood Pressure 176/98 H [Right Arm] O2 Sat by Pulse 100 98 98 Oximetry (%) 10/18/19 10/18/19 10/18/19 17:15 17:20 18:15 Temperature Pulse Rate Pulse Rate [ 84 77 51 L Right] Respiratory 18 Rate Blood Pressure Blood Pressure 172/104 H 172/99 H 168/83 [Right Arm] O2 Sat by Pulse 98 Oximetry (%) 10/18/19 10/18/19 10/18/19 18:56 21:00 21:18 Temperature Pulse Rate Pulse Rate [ 45 L 55 L 67 Right] Respiratory 18 16 20 Rate Blood Pressure Blood Pressure 182/90 H 165/91 172/90 H [Right Arm] O2 Sat by Pulse 98 100 99 Oximetry (%) 10/18/19 10/19/19 22:28 00:00 Temperature Pulse Rate Pulse Rate [ 55 L 53 L Right] Respiratory 18 22 H Rate Blood Pressure Blood Pressure 173/102 H 157/80 [Right Arm] O2 Sat by Pulse 98 99 Oximetry (%) GENERAL: AAOx3 NAD HEAD: Normal with no signs of trauma. EYES: EOMI Sclera Clear EARS, NOSE, THROAT: MMM NECK: Supple LUNGS: Decreased breath sounds at bases HEART: Bradycardic S1S2 ABDOMEN: Obese, Nondistended and nontender MUSCULOSKELETAL: FROM LOWER EXTREMITIES: 2+ pitting edema NEUROLOGICAL: Cranial nerves II-XII intact. Normal speech. PSYCHIATRIC: Cooperative. Good eye contact. Appropriate mood and affect. SKIN: Warm, dry, normal turgor, no rashes or lesions noted, normal capillary refill. Laboratory Results - last 24 hr 10/18/19 10/18/19 10/18/19 16:17 16:30 16:30 WBC 10.8 H RBC 4.55 Hgb 12.5 Hct 37.8 MCV 83.1 MCH 27.6 MCHC 33.2 RDW 15.6 Plt Count 482 H MPV 7.5 Absolute Neuts (auto) 6.1 Neutrophils % 56.1 D Lymphocytes % 35.1 D Monocytes % 6.8 Eosinophils % 1.7 Basophils % 0.3 Nucleated RBC % 0 Sodium 138 Potassium 4.1 Chloride 106 Carbon Dioxide 27 Anion Gap 5 L BUN 13.4 Creatinine 0.9 Est GFR (CKD-EPI)AfAm 94.67 Est GFR (CKD-EPI)NonAf 81.68 Random Glucose 68 L Calcium 9.0 Magnesium 1.7 L Total Bilirubin 0.2 AST 13 L ALT 24 Alkaline Phosphatase 118 H Creatine Kinase 265 H Creatine Kinase Index 0.6 CK-MB (CK-2) 1.7 Troponin I 0.02 Total Protein 7.0 Albumin 3.0 L TSH 0.02 L Free T4 0.86 Urine Color Yellow Urine Appearance Cloudy Urine pH 5.5 D Ur Specific [place] 1.006 L Urine Protein Negative Urine Glucose (UA) Negative Urine Ketones Negative Urine Blood 3+ H Urine Nitrite Negative Urine Bilirubin Negative Urine Urobilinogen 0.2 Ur Leukocyte Esterase 3+ H Urine WBC (Auto) 72.0 Urine RBC (Auto) 5.0 Urine Casts (Auto) 1.48 U Epithel Cells (Auto) 3.6 Urine Bacteria (Auto) 121.8 ASSESSMENT/PLAN: Pt is a 38 y/o F with a significant past medical history of hypothyroidism (on methimazole) who presented to [facility] from her WAITER/WAITRESS COUNTER's clinic (Dr Ibrahim) office due "high blood pressure. #Post Hypertension/ possible Post cardiomyopathy -BP in Emergency Department 182/90 -Administered Inderel 20, Labetalol 200 PO, 10 I.V, Hydralazine 10 -Labetalol discontinued as patient's blood pressure in upper 40s, low 50s -Will place on Lisinopril 10 and Norvasc 5 -Received MagSO4 in E.D., 2 grams for seizure ppx. Will also help with low magnesium level of 1.7. Repeat CMP and Mag in am. -WAITER/WAITRESS COUNTER Consult -Tele monitoring -Blood pressure checks q4H -EKG Sinus bradycardia @ 50 bpm. Repeat EKG in am. -Edchocardogram to assess for cardiomyopathy -CXR shows some pulmonary vascular congestion-unofficial read. Will place on 40 BID furosemide with strict Is and Os. BNp 754. -Urinalysis reveals no protein. Less likely this is post- preeclampsia #Hyperthyroidism -Patient endorses taking 2 tabs(10 mg each) of Methimazole BID. Pt restarted on this dosage. Day team to confirm this with [facility] in am. #FEN No Fluids Monitor Electrolytes Sodium Controlled Diet #DVT ppx: -Hep Sq TID #Dispo -Tele Visit type - Emergency Visit Emergency Visit: Yes ED Registration Date: 10/19/19 Care time: The patient presented to the Emergency Department on the above date and was hospitalized for further evaluation of their emergent condition. - New Patient This patient is new to me today: Yes Date on this admission: 10/19/19 - Critical Care Critical Care patient: No ATTENDING PHYSICIAN STATEMENT I saw and evaluated the patient. I reviewed the resident's note and discussed the case with the resident. I agree with the resident's findings and plan as documented. SUBJECTIVE: OBJECTIVE: ASSESSMENT AND PLAN:
[2019-10-19] MEDS ORDERED: LISINOPRIL 5 MG TABLET (FP) ONE (02:15)
[2019-10-19] MEDS: amLODIPine BESYLATE 5 MG TABLET (FP) PO SCH ×2 (02:25→08:30)
[2019-10-19] MEDS: LISINOPRIL 10 MG TABLET (FP) PO SCH ×2 (02:25→08:30)
[2019-10-19 04:33] LABS: N-TERMINAL BNP 754.1 pg/ml (5-125)
[2019-10-19] MEDS ORDERED: FUROSEMIDE 40 MG/4 ML INJECTABLE VIAL ONE (04:59)
[2019-10-19] MEDS: FUROSEMIDE 40 MG/4 ML INJECTABLE VIAL IVPUSH SCH ×2 (05:03→06:34)
[2019-10-19] MEDS ORDERED: HEPARIN NA (PORCINE) 5,000 UNITS/ML 1ML VIAL SQ SCH (06:00)
[2019-10-19 06:24] VITALS: BMI 34.1
[2019-10-19] MEDS ORDERED: ACETAMINOPHEN 325 MG TABLET (FP) ONE (08:39)
[2019-10-19] MEDS ORDERED: METHIMAZOLE PO SCH (10:00)
[2019-10-19 10:53] VITALS: BP 174/92; PULSE 55; TEMP 98.4
[2019-10-19] MEDS ORDERED: ACETAMINOPHEN 325 MG TABLET (FP) PO PRN (11:05)
[2019-10-19 11:06] LABS: BASO % 0.7 % (0-2.0); EOS % 1.8 % (0-4.5); HEMATOCRIT 38.2 % (32.4-45.2); HEMOGLOBIN 12.7 GM/dL (10.7-15.3); LYMPH % 30.6 % (8-40); MCH 27.7 pg (25.7-33.7); MCHC 33.2 g/dl (32.0-36.0); MEAN CELL VOLUME 83.6 fl (80-96); MEAN PLT VOLUME 7.7 fl (7.5-11.1); MONO % 7.2 % (3.8-10.2); NEUT % 59.7 % (42.8-82.8); PLATELET COUNT 492 K/MM3 (134-434); RBC 4.57 M/mm3 (3.60-5.2); RDW 15.6 % (11.6-15.6); WHITE BLOOD COUNT 9.2 K/mm3 (4.0-10.0)
[2019-10-19] MEDS ORDERED: LISINOPRIL 10 MG TABLET (FP) PO SCH (11:06)
[2019-10-19] MEDS ORDERED: METHIMAZOLE 10 MG TABLET (FP) PO SCH (11:15)
[2019-10-19] MEDS ORDERED: CEFUROXIME AXETIL 500 MG TABLET PO SCH (11:15)
[2019-10-19 11:35] LABS: ALBUMIN 3.1 g/dl (3.4-5.0); BILIRUBIN,TOTAL 0.4 mg/dL (0.2-1); BLOOD UREA NITROGEN 10.3 mg/dL (7-18); CALCIUM 8.9 mg/dL (8.5-10.1); MAGNESIUM 2.1 mg/dL (1.8-2.4); POTASSIUM 4.1 mmol/L (3.5-5.1); TOT PROT 7.5 g/dl (6.4-8.2)
--- NOTE | 2019-10-19 12:11 | ECHO ---
Name: LJ ELIZONDO Exam:Adult Echocardiogram Study Date: 10/19/2019 09:39 AM Age: 38 yrs Reason For Study: Eval for post cardiomyopathy Height: 65 in Weight: 211 lb BSA: 2.0 m2 MMode/2D Measurements & Calculations IVSd: 0.98 cm Ao root diam: 2.5 cm LVIDd: 4.6 cm LA dimension: 4.0 cm LVIDs: 2.9 cm ACS: 2.0 cm LVPWd: 1.0 cm EDV(Teich): 97.9 ml LVOT diam: 2.0 cm ESV(Teich): 31.7 ml LAV (MOD-bp): 88.0 ml TAPSE: 2.6 cm RV S Rivas: 12.9 cm/sec Doppler Measurements & Calculations MV E max rivas: 131.6 cm/sec Ao V2 max: 134.4 cm/sec MV A max rivas: 73.4 cm/sec Ao max P.2 mmHg MV E/A: 1.8 Ao V2 mean: 90.2 cm/sec MV dec time: 0.17 sec Ao mean P.7 mmHg Ao V2 VTI: 31.1 cm OSMAN(I,D): 2.5 cm2 OSMAN(V,D): 2.6 cm2 LV V1 max P.9 mmHg MR max rivas: 571.2 cm/sec LV V1 mean P.2 mmHg MR max P.5 mmHg LV V1 max: 110.4 cm/sec LV V1 mean: 69.0 cm/sec LV V1 VTI: 24.6 cm SV(LVOT): 77.2 ml TR max rivas: 248.9 cm/sec TR max P.9 mmHg PA V2 max: 90.9 cm/sec PI end-d rivas: 122.2 cm/sec PA max P.3 mmHg Med Peak E' Rivas: 7.8 cm/sec Pulm Sys Rivas: 68.0 cm/sec Med E/e': 16.9 Pulm Pat Rivas: 63.6 cm/sec Lat Peak E' Rivas: 12.0 cm/sec Pulm S/D: 1.1 Lat E/e': 11.0 Left Ventricle The left ventricular size, thickness and function are normal. The transmitral spectral Doppler flow p attern is normal for age. Right Ventricle The right ventricle is normal in size and function. Atria The left atrium is borderline dilated. Right atrial size is normal. Mitral Valve The mitral valve is normal in structure and function. There is no mitral valve stenosis. There is mil d mitral regurgitation. Tricuspid Valve The tricuspid valve is normal in structure and function. There is mild tricuspid regurgitation. Right ventricular systolic pressure is normal. Aortic Valve The aortic valve opens well. No hemodynamically significant valvular aortic stenosis. No aortic regur gitation is present. Pulmonic Valve The pulmonic valve is not well seen, but is grossly normal. There is no pulmonic valvular stenosis. M ild pulmonic valvular regurgitation. Great Vessels The aortic root is normal size. Pericardium/Pleura There is no pericardial effusion. Interpretation Summary The left ventricular size, thickness and function are normal The right ventricle is normal in size and function. The left atrium is borderline dilated. There is mild mitral regurgitation. There is mild tricuspid regurgitation. Right ventricular systolic pressure is normal. The aortic root is normal size. There is no pericardial effusion. MD Calvo *Derek 10/19/2019 12:10 PM
--- NOTE | 2019-10-19 12:30 | DS ---
Physical Exam: SUBJECTIVE: Patient seen and examined at the bedsides multiple times today. Patient very emotional, upset, crying and asking to go home. Discussed the importance of blood pressure control as it can put her at risk for cardiac events or stroke especially after recently giving . She is asking to leave AMA despite my asking her to re consider since her BP is not yet at goal. Despite her asking to leave AMA, I spoke to Dr. Pedroza, twister operator and arranged for his office to call patient for a follow up visit within next 5-10 days. Patient is in agreement to follow up with cardiology. In the meantime all medications called into [facility] (amlodopine 5mg, lisinopril 20mg and chlorathalidone 25mg). Patient states she is not breast feeding currently and that her milk is "dried up". OBJECTIVE: Pt is a 38 year old female with a signficant past medical history of hyperthyroidism. She also recently underwent a section 10 days ago. Patient was sent to the ED by her TAKE AWAY WORKER office after her blood pressure was found to be elevated. Emergency department staff spoke with TAKE AWAY WORKER who advised for patient to be placed on Labetalol 200 TID; however, due to patient's bradycardia, this was discontinued. Patient left ama, her last bp was 160/91 but she was asymptomatic. Her cardiac medications were delivered to her by [facility] prior to discharge and she is willing to see Dr. Pedroza next week. Information provided to her. Dr. Pedroza aware. She was found to have a uti on UA and started on ceftin 500mg bid. Patient has capacity to make her own medical decisions and signed the [place] paperwork in my presence. Vital Signs Period Temp Pulse Resp BP Sys/Pat Pulse Ox Last 24 Hr 98.0 F-98.5 F 45-84 16-22 157-188/80-104 98-100 PHYSICAL EXAM GENERAL: The patient is awake, alert, and fully oriented, in no acute distress. very anxious about being hospitalized. HEAD: Normal with no signs of trauma. EYES: PERRL, extraocular movements intact, sclera anicteric, conjunctiva clear. ENT: Ears normal, nares patent, oropharynx clear without exudates, moist mucous membranes. NECK: Trachea midline, full range of motion, supple. LUNGS: Breath sounds equal, clear to auscultation bilaterally HEART: Regular rate and rhythm ABDOMEN: Soft, nontender, nondistended, normoactive bowel sounds, no guarding, no rebound, no hepatosplenomegaly, no masses. EXTREMITIES: +1 bilateral lower ext edema NEUROLOGICAL: Normal speech, gait steady PSYCH: Normal mood, normal affect. SKIN: Warm, dry, normal turgor, no rashes or lesions noted. LABS Laboratory Results - last 24 hr 10/18/19 10/18/19 10/18/19 16:17 16:30 16:30 WBC 10.8 H RBC 4.55 Hgb 12.5 Hct 37.8 MCV 83.1 MCH 27.6 MCHC 33.2 RDW 15.6 Plt Count 482 H MPV 7.5 Absolute Neuts (auto) 6.1 Neutrophils % 56.1 D Lymphocytes % 35.1 D Monocytes % 6.8 Eosinophils % 1.7 Basophils % 0.3 Nucleated RBC % 0 Sodium 138 Potassium 4.1 Chloride 106 Carbon Dioxide 27 Anion Gap 5 L BUN 13.4 Creatinine 0.9 Est GFR (CKD-EPI)AfAm 94.67 Est GFR (CKD-EPI)NonAf 81.68 Random Glucose 68 L Calcium 9.0 Magnesium 1.7 L Total Bilirubin 0.2 AST 13 L ALT 24 Alkaline Phosphatase 118 H Creatine Kinase 265 H Creatine Kinase Index 0.6 CK-MB (CK-2) 1.7 Troponin I 0.02 B-Natriuretic Peptide 754.1 H Total Protein 7.0 Albumin 3.0 L TSH 0.02 L Free T4 0.86 Urine Color Yellow Urine Appearance Cloudy Urine pH 5.5 D Ur Specific [place] 1.006 L Urine Protein Negative Urine Glucose (UA) Negative Urine Ketones Negative Urine Blood 3+ H Urine Nitrite Negative Urine Bilirubin Negative Urine Urobilinogen 0.2 Ur Leukocyte Esterase 3+ H Urine WBC (Auto) 72.0 Urine RBC (Auto) 5.0 Urine Casts (Auto) 1.48 U Epithel Cells (Auto) 3.6 Urine Bacteria (Auto) 121.8 10/19/19 10/19/19 05:50 05:50 WBC 9.2 RBC 4.57 Hgb 12.7 Hct 38.2 MCV 83.6 MCH 27.7 MCHC 33.2 RDW 15.6 Plt Count 492 H MPV 7.7 Absolute Neuts (auto) 5.5 Neutrophils % 59.7 Lymphocytes % 30.6 Monocytes % 7.2 Eosinophils % 1.8 Basophils % 0.7 Nucleated RBC % 0 Sodium 139 Potassium 4.1 Chloride 103 Carbon Dioxide 29 Anion Gap 7 L BUN 10.3 Creatinine 1.0 Est GFR (CKD-EPI)AfAm 83.35 Est GFR (CKD-EPI)NonAf 71.91 Random Glucose 78 Calcium 8.9 Magnesium 2.1 Total Bilirubin 0.4 AST 13 L ALT 28 Alkaline Phosphatase 121 H Creatine Kinase 267 H Creatine Kinase Index 0.4 CK-MB (CK-2) 1.2 Troponin I B-Natriuretic Peptide Total Protein 7.5 Albumin 3.1 L TSH Free T4 Urine Color Urine Appearance Urine pH Ur Specific [place] Urine Protein Urine Glucose (UA) Urine Ketones Urine Blood Urine Nitrite Urine Bilirubin Urine Urobilinogen Ur Leukocyte Esterase Urine WBC (Auto) Urine RBC (Auto) Urine Casts (Auto) U Epithel Cells (Auto) Urine Bacteria (Auto) HOSPITAL COURSE: Date of Admission:10/19/19 Date of Discharge: 10/19/19 Post Hypertension/ possible Post cardiomyopathy echo within normal limits, patient to follow up with Dr. Pedroza BP improving, but not yet at goal. patient refusing to stay and removed the relay shop tester. On amlodopine 5, lisinopril 20, chlothalidone 25 daily Hyperthyroidism Home medications confirmed. UTI Ceftin 500mg bid x 5 days discharge: AGAINST MEDICAL ADVICE Minutes to complete discharge: 60 Discharge Summary Problems reviewed: Yes Reason For Visit: HYPERTENSION Condition: Guarded - Instructions Diet, Activity, Other Instructions: Mrs Metcalf You were admitted for elevated blood pressure, also called uncontrolled hypertension. You have decided to leave against medical advice. Elevated blood pressure can put you at risk for stroke, cardiac arrest. It is important that your control your blood pressure. We will be sending you home with the following medications: Amlodopine 5mg once per day, Take this medication once per day at 8am this is for blood pressure control Chlorathalidone 25mg once per day,Take this medication once per day at 8am this is for blood pressure control Lisinopril 20mg once daily, Take this medication once per day at 8am this is for blood pressure control Ceftin 500mg TWICE daily for 5 days, for urinary tract infection Wrist blood pressure cuff so that you can monitor your blood pressure. Please keep a record and present them to your primary care doctor and Dr. Pedroza. We have contacted Dr. Pedroza's office for you, he is a twister operator. His office will be calling you for an appointment. It is important that you follow up and keep the appointment for hypertension. Thank you for allowing us to care for you. Questions? [phone] Referrals: Darnell Tierney MD [Staff Physician] - Malcolm Deng MD [Primary Care Provider] - Disposition: AGAINST MEDICAL ADVICE - Home Medications Comprehensive Discharge Medication List: Ambulatory Orders Ferrous Sulfate [Iron] 325 mg PO DAILY 09/12/19 Vitamins (Sjr) - 1 tab PO DAILY 09/23/19 Ibuprofen [Motrin -] 600 mg PO QID #28 tablet 10/11/19 Amlodipine Besylate [Norvasc -] 5 mg PO DAILY #90 tablet 10/19/19 Cefuroxime Axetil [Ceftin -] 500 mg PO BID #10 tablet 10/19/19 Chlorthalidone 25 mg PO DAILY #90 tablet 10/19/19 Lisinopril [Prinivil] 20 mg PO DAILY #180 tablet 10/19/19 Methimazole [Tapazole -] 20 mg PO Q12H tablet 10/19/19 This patient is new to me today: Yes Date on this admission: 10/19/19 Emergency Visit: Yes ED Registration Date: 10/19/19 Care time: The patient presented to the Emergency Department on the above date and was hospitalized for further evaluation of their emergent condition. Critical Care patient: No - Discharge Referral Referred to [facility] No
--- NOTE | 2019-10-19 15:37 | EKG ---
Test Reason : Blood Pressure : / mmHG Vent. Rate : 050 BPM Atrial Rate : 050 BPM P-R Int : 170 ms QRS Dur : 074 ms QT Int : 428 ms P-R-T Axes : 044 050 063 degrees QTc Int : 390 ms SINUS BRADYCARDIA WHEN COMPARED WITH ECG OF 16-DEC-2015 13:13, NO SIGNIFICANT CHANGE WAS FOUND Confirmed by TONY HERRON MD ([id number]) on 10/19/2019 3:36:48 PM Referred By: Confirmed By:TONY HERRON MD
== END 2019-10-19 13:30 | disposition left against medical advice (07) ==
LOC: JER 13:41 → INTOOBSV 10-19 00:22 → JERBED 10-19 00:22 → J4W 10-19 06:06
PROVIDERS: ADMIT Internal Medicine; ATTEND Nurse Practitioner Family
PROC: 3E0333Z Introduction of Anti-inflammatory into Peripheral Vein, Percutaneous Approach (ICD-10-PCS; principal; 2019-10-19)
PROC: 3E033GC Introduction of Other Therapeutic Substance into Peripheral Vein, Percutaneous Approach (ICD-10-PCS; 2019-10-19)
PROC: 3E013GC Introduction of Other Therapeutic Substance into Subcutaneous Tissue, Percutaneous Approach (ICD-10-PCS; 2019-10-19)
DX: O13.5 Gestational [pregnancy-induced] hypertension without significant proteinuria, complicating the puerperium (principal); E05.90 Thyrotoxicosis, unspecified without thyrotoxic crisis or storm; R60.0 Localized edema
CPT/HCPCS: 36415; 71045-TC-FY; 80053; 81003; 82550; 82553; 83735; 83880; 84439; 84443; 84484; 85025; 93005; 93010; 93306-TC; 96372; 96374; 96375; 99285-25; G0378; J0131; J1644

== ENCOUNTER 2025-04-11 22:34 | Emergency (ER) | payer OTHER ==
[2025-04-11 22:50] VITALS: BP 153/84; PULSE 88; RESP 20; TEMP 98; BMI 37.4
[2025-04-11] MEDS ORDERED: BACITRACIN ZINC 15 GM TUBE TOPICAL OINTMENT ONE (23:32)
[2025-04-11] MEDS ORDERED: LIDOCAINE HCL 1%, 10 MG/ML (20ML VIAL) ONE (23:32)
[2025-04-11] MEDS ORDERED: DIPHTH,PERTUSS(ACELL),TET 0.5 ML DISP.SYRIN IM ONE (23:33)
[2025-04-11] MEDS: DIPHTH,PERTUSS(ACELL),TET 0.5 ML DISP.SYRIN IM ONE (23:37)
[2025-04-12] MEDS: BACITRACIN ZINC 15 GM TUBE TOPICAL OINTMENT TP ONE (00:56)
[2025-04-12] MEDS: LIDOCAINE HCL 1%, 10 MG/ML (50 mL VIAL) SQ ONE (00:56)
== END 2025-04-12 01:08 | disposition home or self-care (01) ==
LOC: JER 22:34
PROC: 0HQGXZZ Repair Left Hand Skin, External Approach (ICD-10-PCS; principal; 2025-04-11)
PROC: 3E0234Z Introduction of Serum, Toxoid and Vaccine into Muscle, Percutaneous Approach (ICD-10-PCS; 2025-04-11)
DX: S61.412A Laceration without foreign body of left hand, initial encounter (principal); Z23 Encounter for immunization; W22.8XXA Striking against or struck by other objects, initial encounter; Y92.009 Unspecified place in unspecified non-institutional (private) residence as the place of occurrence of the external cause
CPT/HCPCS: 12001-25; 73110-TC-LT-FY; 73130-TC-LT-FY; 90471; 90715; 99284-25